=== PATIENT | male | born 1995 | race Two or more races ===

== ENCOUNTER 2022-12-15 11:42 | Emergency (ER) | payer OTHER ==
[~2022-12-15] VITALS: Ht 175.3 cm; Wt 79.4 kg
[2022-12-15] MEDS ORDERED: OSEL75CA PO (15:30)
== END 2022-12-15 15:38 | disposition home or self-care (01) ==
LOC: ER 11:42
DX: J10.1 Influenza due to other identified influenza virus with other respiratory manifestations (principal); R53.81 Other malaise; Z20.822 Contact with and (suspected) exposure to COVID-19; Z91.013 Allergy to seafood; Z88.6 Allergy status to analgesic agent